=== PATIENT | female | born 1980 | race Caucasian/White ===

== ENCOUNTER 2017-08-22 10:59 | Emergency (ER) | payer OTHER ==
[~2017-08-22] VITALS: Ht 162.6 cm; Wt 79.0 kg
[2017-08-22 11:03] VITALS: Ht 162.6 cm; Wt 79.0 kg
[2017-08-22] MEDS ORDERED: IBUP800T25 PO (13:51)
[2017-08-22] MEDS ORDERED: PENI500T PO (13:51)
--- NOTE | 2017-08-22 13:55 | ERD ---
ER Documentation Chief Complaint Chief Complaint SORE THOAT, FEVER HPI 36-year-old female comes in with sore throat, fever for approximately 2-3 days. The patient states that she has had painful swallowing but no difficulty handling her secretions, and reports a fever being treated with Tylenol and ibuprofen. Last dose of Tylenol was this morning, and as well as ibuprofen approximately 6 hours ago. She has had a cough, congestion as well as body aches. Patient denies any chest pain, shortness breath, hemoptysis, abdominal pain, nausea, vomiting, diarrhea. Sick contacts include her family members at home, her partner as well as her 4-month-old baby. ROS All systems reviewed and are negative except as per history of present illness. Medications Home Meds Active Scripts Ibuprofen* (Motrin*) 800 Mg Tab, 800 MG PO Q6, #20 TAB Prov:LATISHA SCHAEFER PA-C 08/22/17 Penicillin V Potassium* (Penicillin V K*) 500 Mg Tab, 500 MG PO TID for 10 Days , TAB Prov:LATISHA SCHAEFER PA-C 08/22/17 PMhx/Soc Medical and Surgical Hx: pt denies Medical Hx, pt denies Surgical Hx Hx Alcohol Use: No Hx Substance Use: No Hx Tobacco Use: No Physical Exam Vitals Vital Signs Date Time Temp Pulse Resp B/P Pulse Ox O2 Delivery O2 Flow Rate FiO2 08/22/17 11:03 98.2 85 18 113/61 99 Physical Exam General: Well-developed, well-nourished. The patient appears in no acute distress. HEENT: Head is normocephalic, atraumatic. No scleral icterus. Pupils are equal , round, and reactive. Oral mucous membranes are moist. Bilateral tonsillar exudate, uvula midline. Neck: Supple. Nontender. Positive tender cervical lymphadenopathy Lungs: Clear to auscultation. Normal air movement. Heart: Regular rate and rhythm. S1 and S2 are normal. No murmurs, gallops, or rubs. Abdomen: Soft, nontender, nondistended. Bowel sounds are normoactive. Extremities: No clubbing or cyanosis. Normal pulses. Moving extremities x 4. No weakness. Neurologic: Alert and oriented 3. No focal deficits. Skin: Normal turgor. No rash or lesions. Results 24 hrs Current Medications Medications (Trade) Dose Ordered Sig/Bernardo Route PRN Reason Start Time Stop Time Status Last Admin Dose Admin Ibuprofen (Motrin) 600 mg ONCE ONCE PO 08/22/17 14:00 08/22/17 14:01 Acetaminophen (Tylenol Tab) 650 mg ONCE ONCE PO 08/22/17 14:00 08/22/17 14:01 Procedures/MDM 36-year-old female comes in with a 2-3 day history of sore throat, patient has tonsillar exudate, fever, positive cervical lymphadenopathy. Her symptoms appear to be viral, due to her family members being sick as well. At this time there are no signs of deep space infection, and returning process. The patient will be treated for presumed strep given her presentation at this time. She is to return for any worsening symptoms and recheck in 2 days. Departure Diagnosis: Primary Impression: Acute pharyngitis Condition: Good Patient Instructions: Pharyngitis, Strep (Presumed) LATISHA SCHAEFER PA-C Aug 22, 2017 13:55
[2017-08-22] MEDS ORDERED: ACETAMINOPHEN 325 MG TAB PO ONE (14:00)
[2017-08-22] MEDS ORDERED: IBUPROFEN 600 MG TAB PO ONE (14:00)
[2017-08-22 14:15] VITALS: TEMP 101.3
== END 2017-08-22 14:18 | disposition home or self-care (01) ==
LOC: FTE 10:59
DX: J02.9 Acute pharyngitis, unspecified (principal)
CPT/HCPCS: Z7502; Z7610; 99283